=== PATIENT | female | born 1965 | race Caucasian/White ===

== ENCOUNTER 2018-12-10 10:21 | Emergency (ER) | payer BC ==
[~2018-12-10] VITALS: Ht 157.5 cm; Wt 67.1 kg
--- NOTE | 2018-12-10 10:26 | NUR ---
PT MIRELA FROM HOME C/P DIZZINESS, WEAKNESS AND HEART PALPITATION THAT STARTED THIS MORNING. BLOOD SUGAR WAS 38 WHEN PARAMEDICS ARRIVED. WAS GIVEN ORAL GLUCOSE. PT GOWNED AND PLACED ON MONITOR. KENYETTAITEDYTA LUBIN.
[2018-12-10] MEDS ORDERED: DEXTROSE 50%-WATER 50 ML DISP.SYRIN ONE (10:28)
[2018-12-10] MEDS ORDERED: DEXTROSE 50%-WATER 50 ML DISP.SYRIN IV ONE (10:30)
--- NOTE | 2018-12-10 10:33 | NUR ---
TECHNICAL TRAINER AT BEDSIDE FOR BLOOD DRAW.
[2018-12-10 10:37] LABS: BASOPHILS % (AUTO) 0.6 % (0.0-2.0); EOSINOPHILS % (AUTO) 1.3 % (0.0-6.0); HEMATOCRIT 38 % (33-45); HEMOGLOBIN 12.9 g/dL (11.5-14.8); LYMPHOCYTES # (AUTO) 2.3 /CMM (0.8-4.8); LYMPHOCYTES % (AUTO) 46.2 % (20.0-44.0); MEAN CORPUSCULAR HGB CONC 34 g/dl (31.0-36.0); MEAN CORPUSCULAR VOLUME 109 fL (82-100); MONOCYTES # (AUTO) 0.4 /CMM (0.1-1.30); MONOCYTES % (AUTO) 7.3 % (2.0-12.0); NEUTROPHILS # (AUTO) 2.2 /CMM (1.8-8.9); NEUTROPHILS % (AUTO) 44.6 % (43.0-81.0); PLATELET COUNT (AUTO) 211 /CMM (150-450); RED BLOOD CELL COUNT(AUTO) 3.48 MIL/uL (4.0-5.2); WHITE BLOOD COUNT (AUTO) 4.9 K/uL (4.3-11.0)
--- NOTE | 2018-12-10 10:43 | NUR ---
DR MUNGUIA AT BEDSIDE FOR EVAL.
[2018-12-10 10:49] LABS: BILIRUBIN,DIRECT 0.3 mg/dL (0.0-0.2); BILIRUBIN,TOTAL 0.8 mg/dL (0.2-1.0); CALCIUM, SERUM 9.3 mg/dL (8.5-10.1); CREATININE 0.7 mg/dL (0.6-1.3); TOTAL PROTEIN, SERUM 7.3 g/dL (6.4-8.2)
[2018-12-10 10:51] LABS: POTASSIUM 2.7 mmol/L (3.5-5.1)
--- NOTE | 2018-12-10 10:59 | NUR ---
Food tray provided at .
[2018-12-10] MEDS ORDERED: POTASSIUM CHLORIDE 20 MEQ TAB.PRT.SR PO ONE ×2 (11:30)
[2018-12-10 11:42] LABS: EOSINOPHILS % (MANUAL) 2 % (0-4); LYMPHOCYTES % (MANUAL) 42 % (16-48); MONOCYTES % (MANUAL) 6 % (0-11.0); NEUTROPHILS % (MANUAL) 50 (42-76)
[2018-12-10 13:25] VITALS: BP 132/84
--- NOTE | 2018-12-10 13:25 | NUR ---
Patient discharged to home in stable condition. Written and verbal after care instructions given. Patient verbalizes understanding of instruction.IV removed. Catheter intact and site benign. Pressure and 4x4 applied to site. No bleeding noted.
== END 2018-12-10 13:29 | disposition home or self-care (01) ==
LOC: ER 10:24
DX: E16.2 Hypoglycemia, unspecified (principal); E87.6 Hypokalemia; I10 Essential (primary) hypertension; E78.00 Pure hypercholesterolemia, unspecified
CPT/HCPCS: 36415; 80048-TC; 80076-TC; 82962-TC; 85025-TC